=== PATIENT | female | born 1970 | race Caucasian/White ===

== ENCOUNTER 2016-09-14 12:06 | Emergency (ER) | payer OTHER ==
[~2016-09-14] VITALS: Ht 172.7 cm; Wt 72.2 kg
[2016-09-14] MEDS ORDERED: SODIUM CHLORIDE 0.9% 1,000 ML IV ONE (13:01)
[2016-09-14 13:29] LABS: HEMATOCRIT 43.8 % (34.6-47.8); HEMOGLOBIN 14.9 g/dL (11.7-16.4); WHITE BLOOD COUNT 11.3 x10^3/uL (3.4-10)
[2016-09-14] MEDS ORDERED: SODIUM CHLORIDE 0.9% 1,000ML IVBOLUS ONE (13:30)
[2016-09-14 13:37] LABS: ASPARTATE AMINO TRANSFERASE 12 U/L (15-37); BLOOD UREA NITROGEN 14 mg/dL (7-18)
[2016-09-14 13:54] LABS: IS PT STATUS REG ER OR PRE ER? YES
[2016-09-14 15:40] VITALS: BP 100/54
== END 2016-09-14 16:21 | disposition home or self-care (01) ==
LOC: ED 14:19
DX: E87.6 Hypokalemia (principal)
CPT/HCPCS: 36415; 71010; 80053; 81001; 83605; 84145; 84436; 84443; 84484; 85025; 85379; 87040; 87086; 93005; 99285